=== PATIENT | male | born 1945 | race Caucasian/White ===

== ENCOUNTER 2019-12-02 09:50 | Day surgery (SDC) | payer MEDICARE ==
[2019-12-01 16:08] LABS: BASOPHILS # (AUTO) 0.1 X10'3 (0-0.2); BASOPHILS % (AUTO) 0.8 % (0-1); EOSINOPHILS # (AUTO) 0.2 X10'3 (0-0.9); EOSINOPHILS % (AUTO) 2.1 % (0-6); HEMATOCRIT 48.1 % (42.0-52.0); HEMOGLOBIN 16.2 g/dl (14.0-17.9); LYMPHOCYTES # (AUTO) 1.6 X10'3 (1.1-4.8); LYMPHOCYTES % (AUTO) 18.3 % (21-51); MEAN CORPUSCULAR HEMOGLOBIN 31.6 PG (27.0-31.0); MEAN CORPUSCULAR HGB CONC 33.7 g/dL (33.0-36.5); MEAN CORPUSCULAR VOLUME 93.7 FL (78-98); MONOCYTES # (AUTO) 0.7 X10'3 (0-0.9); MONOCYTES % (AUTO) 8.2 % (2-12); NEUTROPHILS # (AUTO) 6.2 X10'3 (1.8-7.7); NEUTROPHILS % (AUTO) 70.6 % (42-75); PLATELET COUNT 180 X10'3 (140-440); RED BLOOD COUNT 5.14 X10'6 (4.70-6.10); RED CELL DISTRIBUTION WIDTH 13.5 % (11.5-14.5); WHITE BLOOD COUNT 8.7 X10'3 (4.5-11.0)
[2019-12-01 16:21] LABS: ALBUMIN 3.5 G/DL (3.4-5.0); ANION GAP 5 (8-16); BLOOD UREA NITROGEN 18 MG/DL (7-18); BUN/CREATININE RATIO 17.1 (5.4-32.0); CALCIUM 8.7 MG/DL (8.5-10.1); CHLORIDE 107 MMOL/L (99-107); CREATININE 1.05 MG/DL (0.60-1.10); GLUCOSE 123 MG/DL (70-104); SODIUM 141 MMOL/L (135-145); TOTAL CARBON DIOXIDE 28.9 MMOL/L (24-32); eGFR 69 ML/MIN
[2019-12-01 16:23] LABS: PARTIAL THROMBOPLASTIN TIME 28 SECONDS (22-32)
[~2019-12-02] VITALS: Ht 177.8 cm; Wt 97.1 kg
[2019-12-02] VITALS (8 sets, daily range): BP systolic 97–131; BP diastolic 51–72
[2019-12-02] MEDS ORDERED: cefazolin/dext.iso 2gm/50ml 50 ML IV ONE (10:25)
[2019-12-02] MEDS ORDERED: normal saline 1000ml 1,000 ML IV SCH ×2 (10:25→14:30)
[2019-12-02] MEDS ORDERED: FURO-150 PO (11:03)
[2019-12-02] MEDS ORDERED: LOVA20TA2 PO (11:03)
[2019-12-02] MEDS ORDERED: POTA10TA36 PO (11:03)
[2019-12-02] MEDS ORDERED: SPIR25TA PO (11:03)
[2019-12-02] MEDS ORDERED: SACU1TAB (11:03)
[2019-12-02] MEDS ORDERED: WARF7.5T48 PO (11:03)
[2019-12-02] MEDS ORDERED: LEVO100T PO (11:03)
[2019-12-02] MEDS ORDERED: CARV25TA56 PO (11:03)
[2019-12-02] MEDS ORDERED: DIGO125T97 PO (11:03)
[2019-12-02] MEDS ORDERED: ceFAZolin 2gm in dextrose, iso 50 ML IV ONE ×2 (11:05→12:51)
[2019-12-02] MEDS ORDERED: fentaNYL/PF 50MCG/1 ML 2ML syringe ONE (12:17)
[2019-12-02] MEDS ORDERED: midazolam 2 mg/2 ml injection ONE (12:17)
[2019-12-02] MEDS ORDERED: LIDOcaine 1% W/epiNEPHrine 1:100,000 20ml vial ONE (12:17)
[2019-12-02] MEDS ORDERED: ceFAZolin 1000mg inj ONE (12:17)
[2019-12-02] MEDS ORDERED: vancomycin/NS 1 GM ADD-VANTAGE 250 ML X 1 DOSE IV ONE (14:30)
== END 2019-12-02 17:50 | disposition home or self-care (01) ==
LOC: SSTAY O 09:50
PROVIDERS: ATTEND Internal Medicine Cardiovascular Disease
DX: Z45.010 Encounter for checking and testing of cardiac pacemaker pulse generator [battery] (principal); I25.10 Atherosclerotic heart disease of native coronary artery without angina pectoris; I25.2 Old myocardial infarction; Z95.5 Presence of coronary angioplasty implant and graft; I10 Essential (primary) hypertension; E78.5 Hyperlipidemia, unspecified; I49.5 Sick sinus syndrome; I48.20 Chronic atrial fibrillation, unspecified
CPT/HCPCS: 33227; 36415; 80048; 85025; 85610; 85730; 93005; C1786; C1894; J0690; J2250; J3010; J3370; 33228; 99152; 99153; A4620; C1785